=== PATIENT | male | born 1985 | race Caucasian/White ===

== ENCOUNTER 2020-09-22 16:26 | Emergency (ER) | payer OTHER ==
[~2020-09-22] VITALS: Ht 185.4 cm; Wt 81.8 kg
[~2020-09-22 16:26] MED LIST: ADVIL200 M1 OR; ADVIL200 MG PO; AMOXICILLIN500 MG PO; BACTRIM DS1 TAB PO; BENADRYL 50MG C50 MG PO; CELEBREX200 MG OR; CIPROFLOXACN500 MG OR; CORTISPORIN OTI10 ML AD; DARVOCET-N 100100 MG OR; HYDROCO/APAP1 TA9 PO; LORTAB 5 OR; NO; NO HOME MEDS; OXYCODONE10 M1 OR; PERCOCET1 TA1 OR; POLYTRIM OP; PRILOSEC20 MG/CAP PO; REGLAN10 MG OR; SOMA350 MG OR; TYLENOL # 31 TA1 PO; ULTRAM50 M1 PO
[2020-09-22] MEDS ORDERED: CYCLOBENZAPRINE10 MG PO (19:06)
[2020-09-22 19:25] VITALS: BP 129/67
== END 2020-09-22 19:25 | disposition home or self-care (01) | DRG 552 ==
LOC: ED 16:26
DX: M54.9 Dorsalgia, unspecified (principal); M54.2 Cervicalgia; F17.210 Nicotine dependence, cigarettes, uncomplicated; V49.50XA Passenger injured in collision with unspecified motor vehicles in traffic accident, initial encounter